=== PATIENT | female | born 1975 | race African-American/Black ===

== ENCOUNTER 2018-06-10 01:09 | Emergency (ER) | payer OTHER ==
[~2018-06-10] VITALS: Ht 157.5 cm; Wt 118.0 kg
[2018-06-10] MEDS ORDERED: SODIUM CHLORIDE 0.9% 1,000 ML IV ONE (02:24)
[2018-06-10] MEDS ORDERED: ACETAMINOPHEN 325MG TABLET PO ONE (02:30)
[2018-06-10 03:19] LABS: CHLORIDE 106 mEq/L (98-107)
[2018-06-10 03:22] LABS: HCG SCREEN NEGATIVE
[2018-06-10 03:23] LABS: BASOPHILS % 0.4 % (0.0-2.0); HEMOGLOBIN. 13.9 g/dL (12.0-16.0); LYMPHOCYTES % 20.6 % (20.0-50.0); MEAN CORPUSCULAR HEMOGLOBIN 28.7 pg (28.0-32.0); MEAN CORPUSCULAR VOLUME 86.9 fL (81.0-99.0); MEAN PLATELET VOLUME 7.7 fl (7.4-10.4); PLATELET 291 x1000/uL (130-400); RED BLOOD CELL COUNT 4.83 mill/uL (4.2-5.4)
[2018-06-10] MEDS ORDERED: ACETAMINOPHEN WITH CODEINE 300/30MG TABLET PO ONE (04:45)
[2018-06-10 04:49] VITALS: BP 108/75
[2018-06-10] MEDS ORDERED: IOHEXOL-300 100 ML BOTTLE ONE (04:59)
== END 2018-06-10 05:27 | disposition home or self-care (01) ==
LOC: ER 01:09
DX: S20.219A Contusion of unspecified front wall of thorax, initial encounter (principal); W22.11XA Striking against or struck by driver side automobile airbag, initial encounter; M25.562 Pain in left knee; M25.561 Pain in right knee; V49.49XA Driver injured in collision with other motor vehicles in traffic accident, initial encounter; Y93.89 Activity, other specified; Y92.410 Unspecified street and highway as the place of occurrence of the external cause; Z98.84 Bariatric surgery status
CPT/HCPCS: 36415; 71045; 71260; 73562; 74177; 80053; 83690; 84703; 85025; 99285; J7030; Q9967; Z7610